=== PATIENT | female | born 1965 | race African-American/Black ===

== ENCOUNTER 2018-09-16 08:36 | Inpatient (IN) ==
[2018-09-16] MEDS ORDERED: ONDANSETRON 4 MG/2 ML VIAL IV STA (09:15)
[2018-09-16] MEDS ORDERED: HYDROmorphone 2 MG/1 ML VIAL IV STA (09:15)
[2018-09-16] MEDS ORDERED: SODIUM CHLORIDE 0.9% 1,000 ML IV STA ×2 (09:15→12:21)
[2018-09-16 09:40] LABS: Basophils # 0.1 10*3/uL (0.0-0.2); Basophils % 0.9 % (0.0-0.8); Eosinophils # 0.5 10*3/uL (0.0-0.87); Eosinophils % 4.2 % (0.00-10.9); Hemoglobin 13.3 GM/DL (12.0-16.0); Immature Granulocytes % 0.5 %; Immature Granulocytes Absolute 0.06 #; Lymphocytes # 3.9 10*3/uL (1.4-4.0); Lymphocytes % 33.8 % (21.3-54.2); Mean Corpuscular HGB Conc 33.3 GM/DL (32-36); Mean Corpuscular Hemoglobin 31 PG (27-34); Mean Corpuscular Volume 91.7 FL (87-102); Mean Platelet Volume 9.7 FL (9.6-12.0); Monocytes # 0.9 10*3/uL (0.11-0.8); Monocytes % 7.5 % (1.7-12.7); Neutrophils # 6.2 10*3/uL (1.4-7.4); Neutrophils % 53.1 % (38.7-73.9); Platelet Count 339 T/CUMM (130-400); Red Blood Count 4.36 MC/CUMM (3.8-5.5); Red Cell Distribution Width 13.5 % (9.3-17.3); White Blood Count 11.6 T/CUMM (4-12)
[2018-09-16 09:58] LABS: Alanine Aminotransferase 22 U/L (13-56); Albumin 3.2 G/DL (3.4-5.0); Alkaline Phosphatase 105 U/L (45-117); Aspartate Amino Transferase 9 U/L (0-37); Bilirubin,Total < 0.39 MG/DL (0.2-1.0); Blood Urea Nitrogen 13 MG/DL (7-18); Calcium 8.9 MG/DL (8.5-10.1); Glucose 99 MG/DL (74-106); Osmolality,Calculated 289.6 MOS/KG (273-304); Potassium 3.8 MMOL/L (3.5-5.1); Sodium 146 MMOL/L (136-145); Total Protein 7.1 G/DL (6.4-8.3)
[2018-09-16 10:15] LABS: Apearance,Urine Slightly Hazy (Clear); Bilirubin,Urine Negative (Negative); Blood, Urine Small mg/dL (Negative); Glucose,Urine (UA) Negative (Negative); Ketones,Urine Negative (Negative); Mucus,Urine Many /LPF (Occasional); Nitrite,Urine Negative (Negative); Protein,Urine Negative; RBC,Urine 15 /HPF (0-4); Squamous Epithelial Cell,Urine Occasional /HPF (0-10); Urine Color Yellow (Yellow); Urine Specific Gravity 1.025 (1.001-1.035); Urine Urobilinogen < 2.0 EU/DL (0.2-1.0); WBC,Urine <1 /HPF (0-6)
[2018-09-16] MEDS ORDERED: ceFAZolin 1,000 MG in SYRINGE 1 EACH IV ONE (12:34)
[2018-09-16] MEDS ORDERED: KETOROLAC 30 MG/1 ML VIAL IV PRN (12:52)
[2018-09-16] MEDS ORDERED: ACETAMINOPHEN 325 MG TABLET PO PRN (12:52)
[2018-09-16] MEDS ORDERED: ONDANSETRON 4 MG/2 ML VIAL IV PRN ×2 (12:52)
[2018-09-16] MEDS ORDERED: LIDOCAINE 1%/EPI INJ 20 ML VIAL ONE (13:57)
[2018-09-16] MEDS ORDERED: BUPIVACAINE 0.5% 50 ML VIAL ONE (15:24)
[2018-09-16] MEDS ORDERED: ONDANSETRON 4 MG/2 ML VIAL ONE ×2 (16:09→16:13)
[2018-09-16] MEDS ORDERED: MEPERIDINE 25 MG/1 ML VIAL ONE (16:09)
[2018-09-16] MEDS ORDERED: PHENYLEPHRINE 0.5% NASAL SPRAY 15 ML BOTTLE BOTH NARES ONE (16:13)
[2018-09-16] MEDS ORDERED: PROPOFOL 200 MG/20 ML VIAL IV ONE (16:13)
[2018-09-16] MEDS ORDERED: MIDAZOLAM 2 MG/2 ML VIAL ONE (16:13)
[2018-09-16] MEDS ORDERED: SEVOFLURANE 1 UNIT/15 MINUTE INH ONE (16:13)
[2018-09-16] MEDS ORDERED: fentaNYL 100 MCG/2 ML VIAL ONE (16:13)
[2018-09-16] MEDS ORDERED: ROCURONIUM 100 MG/10 ML VIAL IV ONE (16:14)
[2018-09-16] MEDS ORDERED: NEOSTIGMINE 10 MG/10 ML VIAL ONE (16:14)
[2018-09-16] MEDS ORDERED: LACTATED RINGERS 2,000 ML IV ONE (16:14)
[2018-09-16] MEDS ORDERED: SUCCINYLCHOLINE 200 MG/10 ML VIAL ONE (16:14)
[2018-09-16] MEDS ORDERED: GLYCOPYRROLATE 0.4 MG/2 ML VIAL ONE (16:14)
[2018-09-16 16:52] LABS: Apearance,Urine CLEAR (Clear); Bilirubin,Urine Negative (Negative); Blood, Urine Small mg/dL (Negative); Glucose,Urine (UA) Negative (Negative); Ketones,Urine Negative (Negative); Mucus,Urine Occasional /LPF (Occasional); Nitrite,Urine Negative (Negative); Protein,Urine Negative; RBC,Urine 2 /HPF (0-4); Squamous Epithelial Cell,Urine Occasional /HPF (0-10); Urine Color Straw (Yellow); Urine Specific Gravity 1.038 (1.001-1.035); Urine Urobilinogen < 2.0 EU/DL (0.2-1.0); WBC,Urine <1 /HPF (0-6)
[2018-09-16] MEDS: PANTOPRAZOLE 40 MG VIAL IV SCH (18:55)
[2018-09-16] MEDS: HYDROmorphone 2 MG/1 ML VIAL IV PRN (21:46)
[2018-09-16] MEDS: LACTATED RINGERS 1,000 ML IV SCH ×2 (21:48)
[2018-09-17 05:36] LABS: Basophils % 0.2 % (0.0-0.8); Eosinophils # 0.4 10*3/uL (0.0-0.87); Eosinophils % 3.1 % (0.00-10.9); Hematocrit 38.5 VOL% (35.7-47.0); Hemoglobin 12.5 GM/DL (12.0-16.0); Immature Granulocytes % 0.6 %; Immature Granulocytes Absolute 0.09 #; Lymphocytes # 1.7 10*3/uL (1.4-4.0); Lymphocytes % 11.7 % (21.3-54.2); Mean Corpuscular HGB Conc 32.5 GM/DL (32-36); Mean Corpuscular Hemoglobin 30 PG (27-34); Mean Corpuscular Volume 92.1 FL (87-102); Monocytes # 0.6 10*3/uL (0.11-0.8); Monocytes % 4.4 % (1.7-12.7); Neutrophils # 11.5 10*3/uL (1.4-7.4); Platelet Count 313 T/CUMM (130-400); Red Blood Count 4.18 MC/CUMM (3.8-5.5); Red Cell Distribution Width 13.8 % (9.3-17.3); White Blood Count 14.3 T/CUMM (4-12)
[2018-09-17 05:53] LABS: Calcium 7.9 MG/DL (8.5-10.1); Potassium 3.5 MMOL/L (3.5-5.1)
[2018-09-17] MEDS: LACTATED RINGERS 1,000 ML IV SCH ×2 (05:55→15:37)
[2018-09-17] MEDS: HYDROmorphone 2 MG/1 ML VIAL IV PRN (05:57)
[2018-09-17] MEDS ORDERED: NALOXONE 0.4 MG/ML VIAL IV PRN (09:32)
[2018-09-17] MEDS: PANTOPRAZOLE 40 MG VIAL IV SCH (09:39)
[2018-09-17] MEDS: HYDROmorphone PCA 30 MG/30 ML SYRINGE IV SCH (10:54)
[2018-09-17] MEDS: KETOROLAC 15 MG/1 ML VIAL IV SCH ×3 (11:20→21:36)
[2018-09-17] MEDS: NICOTINE 21 MG/24 HR PATCH TRANSDERM SCH ×2 (15:36→15:38)
[2018-09-18] MEDS: KETOROLAC 15 MG/1 ML VIAL IV SCH ×4 (03:21→21:25)
[2018-09-18] MEDS: LACTATED RINGERS 1,000 ML IV SCH (03:25)
[2018-09-18] MEDS: HYDROmorphone PCA 30 MG/30 ML SYRINGE IV SCH (09:00)
[2018-09-18] MEDS: PANTOPRAZOLE 40 MG VIAL IV SCH (10:40)
[2018-09-18] MEDS: NICOTINE 21 MG/24 HR PATCH TRANSDERM SCH (10:47)
[2018-09-18] MEDS ORDERED: MORPHINE 4 MG/1 ML VIAL IV PRN (10:57)
[2018-09-18] MEDS: ENOXAPARIN 40 MG/0.4 ML SYRINGE SUBCUT SCH (13:27)
[2018-09-18] MEDS: BISACODYL 5 MG TABLET PO PRN (23:06)
[2018-09-19] MEDS: KETOROLAC 15 MG/1 ML VIAL IV SCH ×4 (04:33→21:50)
[2018-09-19] MEDS: PANTOPRAZOLE 40 MG VIAL IV SCH (09:25)
[2018-09-19] MEDS: ENOXAPARIN 40 MG/0.4 ML SYRINGE SUBCUT SCH (12:01)
[2018-09-19] MEDS: NICOTINE 21 MG/24 HR PATCH TRANSDERM SCH (17:06)
[2018-09-19] MEDS: BISACODYL 5 MG TABLET PO PRN (22:07)
[2018-09-20] MEDS: KETOROLAC 15 MG/1 ML VIAL IV SCH ×4 (04:30→22:08)
[2018-09-20] MEDS: DOCUSATE SODIUM 100 MG CAPSULE PO SCH ×2 (09:57→22:07)
[2018-09-20] MEDS: PANTOPRAZOLE 40 MG VIAL IV SCH (10:00)
[2018-09-20] MEDS: ENOXAPARIN 40 MG/0.4 ML SYRINGE SUBCUT SCH ×2 (10:06→12:08)
[2018-09-20] MEDS: NICOTINE 21 MG/24 HR PATCH TRANSDERM SCH (10:07)
[2018-09-20] MEDS: BISACODYL 10 MG SUPP RECTAL SCH ×3 (10:09→22:08)
[2018-09-20] MEDS: METOCLOPRAMIDE 10 MG TABLET PO SCH ×3 (12:16→22:07)
[2018-09-21] MEDS: KETOROLAC 15 MG/1 ML VIAL IV SCH ×2 (03:58→09:06)
[2018-09-21 05:36] LABS: Basophils % 0.3 % (0.0-0.8); Eosinophils # 0.7 10*3/uL (0.0-0.87); Eosinophils % 8.1 % (0.00-10.9); Hematocrit 34.7 VOL% (35.7-47.0); Hemoglobin 11.5 GM/DL (12.0-16.0); Immature Granulocytes % 0.3 %; Immature Granulocytes Absolute 0.03 #; Lymphocytes % 22.2 % (21.3-54.2); Mean Corpuscular HGB Conc 33.1 GM/DL (32-36); Mean Corpuscular Hemoglobin 30 PG (27-34); Mean Corpuscular Volume 90.8 FL (87-102); Mean Platelet Volume 9.9 FL (9.6-12.0); Monocytes # 0.9 10*3/uL (0.11-0.8); Monocytes % 9.5 % (1.7-12.7); Neutrophils # 5.5 10*3/uL (1.4-7.4); Neutrophils % 59.6 % (38.7-73.9); Platelet Count 311 T/CUMM (130-400); Red Blood Count 3.82 MC/CUMM (3.8-5.5); Red Cell Distribution Width 13.4 % (9.3-17.3); White Blood Count 9.2 T/CUMM (4-12)
[2018-09-21 05:52] LABS: Calcium 8.5 MG/DL (8.5-10.1); Osmolality,Calculated 283.8 MOS/KG (273-304); Potassium 3.5 MMOL/L (3.5-5.1)
[2018-09-21] MEDS: DOCUSATE SODIUM 100 MG CAPSULE PO SCH (09:05)
[2018-09-21] MEDS: METOCLOPRAMIDE 10 MG TABLET PO SCH ×2 (09:05→11:26)
[2018-09-21] MEDS: BISACODYL 10 MG SUPP RECTAL SCH (09:06)
[2018-09-21] MEDS: PANTOPRAZOLE 40 MG VIAL IV SCH (09:06)
[2018-09-21] MEDS: NICOTINE 21 MG/24 HR PATCH TRANSDERM SCH (09:06)
[2018-09-21 11:31] VITALS: BP 153/91
[2018-09-21] MEDS: ENOXAPARIN 40 MG/0.4 ML SYRINGE SUBCUT SCH (11:32)
== END 2018-09-21 12:40 | disposition home or self-care (01) | DRG 337 ==
LOC: N.ED 08:36 → N.EDINP 12:52 → N.3E 13:48
PROVIDERS: ADMIT Surgery; ATTEND Surgery